=== PATIENT | male | born 1940 | race African-American/Black ===

== ENCOUNTER 2024-07-31 22:27 | Emergency (ER) | payer MEDICARE, MEDICAID ==
[~2024-07-31] VITALS: Ht 175.3 cm; Wt 69.0 kg
[2024-07-31 22:53] VITALS: TEMP 98.1; O2SAT 99
[2024-08-01 01:37] LABS: BASOPHILS % 0.3 % (0.0-2.0); EOSINOPHILS % 0.5 % (0.0-5.0); HEMATOCRIT. 41.8 % (42.0-52.0); MEAN CORPUSCULAR HEMOGLOBIN 29.4 pg (28.0-32.0); MEAN CORPUSCULAR HGB CONC 33.3 g/dL (31.0-37.0); MEAN PLATELET VOLUME 8.2 fl (7.4-10.4); MONOCYTES % 7.8 % (2.0-8.0); NEUTROPHILS % 83.4 % (40.0-76.0); PLATELET 266 x1000/uL (130-400); RED BLOOD CELL COUNT 4.75 mill/uL (4.7-6.1); WHITE BLOOD COUNT 10.7 x1000/uL (4.5-11.0)
[2024-08-01 01:40] LABS: CHLORIDE 107 mEq/L (98-107); POTASSIUM 4.3 mEq/L (3.5-5.1); SODIUM 142 mEq/L (136-145)
[2024-08-01 01:41] LABS: CALCIUM 10.2 mg/dL (8.7-10.4); CARBON DIOXIDE 26 mEq/L (21-32)
[2024-08-01 01:46] LABS: CREATININE 1.4 mg/dL (0.6-1.3); GLUCOSE 100 mg/dL (70-105); UREA NITROGEN BLOOD 14 mg/dL (9-23)
[2024-08-01 01:47] LABS: TROPONIN I HIGH SENSITIVITY 14 ng/L (3.0-53)
[2024-08-01 02:29] LABS: ETHANOL BLOOD < 10 mg/dL (<10)
[2024-08-01 03:44] VITALS: BP 120/73; PULSE 81; RESP 19; O2SAT 100
== END 2024-08-01 03:44 | disposition home or self-care (01) ==
LOC: ER 22:27
DX: R45.1 Restlessness and agitation (principal); G89.29 Other chronic pain; M54.9 Dorsalgia, unspecified; F03.911 Unspecified dementia, unspecified severity, with agitation
CPT/HCPCS: 36415; 71045; 80048; 80320; 84484; 85025; 93005; 99285; G0480